=== PATIENT | female | born 1925 | race Caucasian/White ===

== ENCOUNTER → 2016-08-23 | Outpatient (CLI) | payer OTHER, MEDICARE ==
[~2016-08-23] MED LIST: AMLO-114 PO; ANAS1TAB19 PO; ASPEC81 PO; CALCTAB5 PO; DOCU100C31 PO; FLNIN NAE; FLV400 PO; METH1TAB66 PO; MULT-506 PO; NISO20TA PO; POTA10CA28 PO; SIMV40TA2 PO
--- NOTE | 2016-08-24 16:06 | MAMMOGRAPHY REPORT ---
UNILATERAL LEFT DIGITAL SCREENING MAMMOGRAM TOMOSYNTHESIS WITH CAD: 08/23/2016 CLINICAL HISTORY: Asymptomatic. Personal history of breast cancer. TECHNIQUE: Breast tomosynthesis in addition to standard 2D mammography was performed. Current study was also evaluated with a Computer Aided Detection (CAD) system. Left CC and MLO 2-D and tomosynth esis images were obtained. COMPARISON: Comparison is made to exams dated: 08/21/2015 mammogram, 08/19/2014 mammogram, 08/16/2013 [facility] mogram, 08/15/2012 mammogram, 08/15/2011 mammogram, and 08/11/2010 mammogram - [facility] er. BREAST COMPOSITION: The tissue of the left breast is heterogeneously dense, which may obscure small masses. FINDINGS: There are no suspicious masses, calcifications, or areas of architectural distortion noted in the left breast. There has been no significant interval change compared to prior exams. A biop sy marker clip is again noted in the left superior breast. Scattered benign-appearing calcification s are not significantly changed. Left breast asymmetries are stable. IMPRESSION: ACR BI-RADS CATEGORY 2: BENIGN There is no mammographic evidence of malignancy. A 1 year screening mammogram is recommended. The p atient will receive written notification of the results. Approximately 10% of breast cancers are not detected with mammography. A negative mammographic repor t should not delay biopsy if a clinically suggestive mass is present. Meaghan Grimaldo M.D. /:08/24/2016 15:49:56 Pain Coordinator: Sima LO(Nyla)(Ira), [facility] letter sent: Normal 1/2 BI-RADS Code: ACR BI-RADS Category 2: Benign
== END | disposition home or self-care (01) ==
LOC: C.MAMM 09:23
PROVIDERS: ATTEND Family Medicine
DX: Z12.31 Encounter for screening mammogram for malignant neoplasm of breast (principal); Z90.11 Acquired absence of right breast and nipple

== ENCOUNTER → 2016-08-25 | Outpatient (CLI) | payer OTHER, MEDICARE ==
[2016-08-25 09:47] LABS: BASO % 0.5 %; BASO ABS # 0.04 K/uL (0-0.2); COMPLETE YES; EOS % 3.2 %; HEMATOCRIT 38.3 % (37-47); IG% 0.3 %; LYMPH % 15.1 %; LYMPH ABS # 1.17 K/uL (1.2-3.4); MEAN CELL VOLUME 87.2 fL (80-100); MEAN CORPUSCULAR HEMOGLOBIN 28.9 pg (25-34); MEAN CORPUSCULAR HGB CONC 33.2 g/dl (32-36); MEAN PLATELET VOLUME 10.4 fL (7.4-10.4); MONO % 5.4 %; NEUT % 75.5 %; PLATELET COUNT 444 K/uL (130-400); RED BLOOD COUNT 4.39 M/uL (4.2-5.4); WHITE BLOOD COUNT 7.76 K/uL (4.8-10.8)
[2016-08-25 10:03] LABS: ALT/SGPT 20 U/L (12-78); AST/SGOT 14 U/L (15-37); BLOOD UREA NITROGEN 20 mg/dl (7-18); BUN/CREATININE RATIO 20.5 (10-20); CALCIUM 9.6 mg/dl (8.5-10.1); CARBON DIOXIDE 32 mmol/L (21-32); CHLORIDE 101 mmol/L (98-107); GLUCOSE 103 mg/dl (70-99); POTASSIUM 3.6 mmol/L (3.5-5.1); SODIUM 139 mmol/L (136-145)
[2016-08-25 10:08] LABS: ALB/GLOB RATIO 1.2 (0.9-2); ALKALINE PHOSPHATASE 55 U/L (45-117)
--- NOTE | 2016-09-09 07:25 | CODING QUERY NO DIAGNOSIS ---
TREATMENT RENDERED WITHOUT A DIAGNOSIS To promote full compliance with coding requirements relating to patient care, physician participation is requested in all cases of material stress tester uncertainty. Please assist us with providing a diagnosis/symptom for the test(s) below: A diagnosis/symptom was not documented on your Order. A valid diagnosis/symptom is required to bill all insurances. Please remember that we are unable to code a diagnosis of rule out, probable, possible, questionable, or suspected. Tests that require a diagnosis: * CBC W/ AUTO DIFF DIAGNOSIS: * CMP W/ LDH DIAGNOSIS: * DOS: 08/25/16 Provider Signature: Date: Thank you [facility] Information Management Once completed, please kindly fax back to [phone] For questions please call [phone]
== END | disposition home or self-care (01) ==
LOC: C.LAB 06:41
PROVIDERS: ATTEND Internal Medicine Hematology & Oncology
DX: C50.111 Malignant neoplasm of central portion of right female breast (principal)

== ENCOUNTER → 2016-10-04 | Outpatient (CLI) | payer OTHER, MEDICARE ==
[2016-10-04 09:43] LABS: BASO % 0.7 %; BASO ABS # 0.06 K/uL (0-0.2); COMPLETE YES; EOS % 2.7 %; HEMATOCRIT 41.8 % (37-47); IG% 0.2 %; LYMPH % 12.1 %; LYMPH ABS # 1.07 K/uL (1.2-3.4); MEAN CELL VOLUME 89.9 fL (80-100); MEAN CORPUSCULAR HEMOGLOBIN 28.2 pg (25-34); MEAN CORPUSCULAR HGB CONC 31.3 g/dl (32-36); MEAN PLATELET VOLUME 10.6 fL (7.4-10.4); MONO % 7.2 %; NEUT % 77.1 %; PLATELET COUNT 502 K/uL (130-400); RED BLOOD COUNT 4.65 M/uL (4.2-5.4); WHITE BLOOD COUNT 8.81 K/uL (4.8-10.8)
[2016-10-04 09:51] LABS: ALT/SGPT 20 U/L (12-78); BLOOD UREA NITROGEN 20 mg/dl (7-18); CARBON DIOXIDE 30 mmol/L (21-32); CHLORIDE 100 mmol/L (98-107); GLUCOSE 101 mg/dl (70-99); POTASSIUM 3.4 mmol/L (3.5-5.1); SODIUM 140 mmol/L (136-145)
[2016-10-04 09:54] LABS: ALB/GLOB RATIO 1.1 (0.9-2); ALKALINE PHOSPHATASE 55 U/L (45-117); AST/SGOT 17 U/L (15-37)
[2016-10-04 09:58] LABS: CALCIUM 9.5 mg/dl (8.5-10.1)
== END | disposition home or self-care (01) ==
LOC: C.LAB 06:41
PROVIDERS: ATTEND Internal Medicine Hematology & Oncology
DX: C50.911 Malignant neoplasm of unspecified site of right female breast (principal)

== ENCOUNTER → 2016-10-06 | Outpatient (CLI) | payer OTHER, MEDICARE ==
[~2016-10-06] MED LIST changes: +OPTIRAY 320 IV PRN
--- NOTE | 2016-10-06 13:27 | DIAGNOSTIC IMAGING REPORT ---
CHEST CT WITH CONTRAST CT DOSE: HISTORY: BREAST CA, RESTAGING FOR METASTATIC BREAST CA TECHNIQUE: Multiaxial CT images of the chest were performed following the intravenous administration of contrast. COMPARISON: Chest CT 10/10/2006. FINDINGS: No pneumothorax. No pleural effusions. Mild emphysema. Calcified granuloma within the right lung apex. No new or suspicious pulmonary nodules identified. No suspicious lytic or blastic osseous lesions. A stable 9 mm right thyroid nodule. No hilar lymphadenopathy. Slight increase in size in the mediastinal lymph nodes. Dominant lymph node at the AP window measures 15 x 11 mm, previous measuring 11 x 8 mm. Multiple hypodense lesions within the visualized liver favor cysts. No axillary lymphadenopathy. Prior right mastectomy. A 6 mm calcification within the right side of the central canal of the thoracic spine at the T6 level. The long-term stability favors a benign lesion such as a meningioma. Normal caliber thoracic aorta. The central pulmonary arteries are patent. IMPRESSION: 1. Borderline enlarged mediastinal lymph nodes which have slightly increased in size from the prior studies. Follow-up is recommended to ensure stability. 2. No pulmonary nodules identified. 3. Prior right mastectomy. Electronically signed by: Con Brian M.D. 10/06/2016 1:26 PM Dictated Date/Time: 10/06/2016 1:18 PM
--- NOTE | 2016-10-06 13:51 | DIAGNOSTIC IMAGING REPORT ---
CT OF THE ABDOMEN AND PELVIS WITH CONTRAST CLINICAL HISTORY: Breast cancer. COMPARISON STUDY: CT of the chest abdomen pelvis October 10, 2006 and PET/CT August 01, 2007. TECHNIQUE: Following IV administration of 91 mL of [id number]-320, axial images of the abdomen and pelvis were obtained from the lung bases to the proximal femurs. Images were reviewed in the axial, sagittal, and coronal planes. IV contrast was administered without complication. Oral contrast was administered. CT DOSE: 582.02 mGy.cm FINDINGS: The chest will be reported separately. Numerous water attenuation hepatic lesions reflect cysts. There are numerous subcentimeter hepatic lesions which are too small to characterize but likely reflect cysts as well. The spleen, adrenal glands and pancreas are unremarkable. There is a cyst within the upper pole the left kidney. There are numerous subcentimeter renal lesions which are too small to characterize but likely reflect cysts as well. There is no hydronephrosis. There is no biliary or pancreatic ductal dilatation. Caliber and wall thickness of small and large bowel are normal. A 2.6 cm water attenuation left adnexal lesion is noted. There are no suspicious osseous lesions. There is mild loss of height of the superior endplate of L2. The findings suggest a subacute to acute L2 compression fracture. IMPRESSION: 1. No evidence of metastatic disease within the abdomen or pelvis. 2. Subacute to acute mild L2 compression fracture with mild loss of vertebral body height. 3. 2.6 cm water attenuation left adnexal lesion. While abnormal in a postmenopausal patient, the appearance favors a cyst. Electronically signed by: Jaleel Ngo M.D. 10/06/2016 1:49 PM Dictated Date/Time: 10/06/2016 1:19 PM
--- NOTE | 2016-10-06 14:08 | DIAGNOSTIC IMAGING REPORT ---
WHOLE-BODY NUCLEAR BONE SCAN CLINICAL HISTORY: Breast cancer. COMPARISON STUDY: Nuclear bone scan dated 10/10/2006. CT scan of the chest, abdomen, and pelvis dated 10/06/2016. TECHNIQUE: Three hours following the IV administration of 27.2 mCi of technetium 99m MDP, whole body nuclear bone scan was performed in the anterior and posterior projections. FINDINGS: There is no abnormal osseous tracer deposition identified typical in appearance for bony metastatic disease. Typically degenerative uptake is identified shoulders, hips, knees, and ankles. Intense activity is seen in the upper lumbar region. This likely corresponds to degenerative change when correlated with the 10/06/[address] Additional typically General foci of activity are seen within the cervical, thoracic, and mid to lower lumbar spinal. There is expected excreted activity within the renal collecting system and bladder. Activity in the inguinal region likely represents urine contamination. There is nonspecific tracer localization in the left breast. IMPRESSION: 1. There is no abnormal tracer deposition identified typical in appearance for bony metastatic disease. 2. Numerous foci of typically degenerative activity as above, greatest throughout the spine. 3. There is nonspecific tracer localization in the left breast. Clinical correlation will be required. Electronically signed by: Sunny Bey M.D. 10/06/2016 2:06 PM Dictated Date/Time: 10/06/2016 2:03 PM
== END | disposition home or self-care (01) ==
LOC: C.NUCL 09:46
PROVIDERS: ATTEND Internal Medicine Hematology & Oncology
DX: C50.911 Malignant neoplasm of unspecified site of right female breast (principal)